=== PATIENT | male | born 1965 | race Hispanic/Latino ===

== ENCOUNTER 2021-06-30 21:32 | Emergency (ER) | payer OTHER ==
[2021-06-30] MEDS ORDERED: Acetaminophen 500 MG TAB ONE (22:08)
[2021-06-30] MEDS ORDERED: Cyclobenzaprine 10 MG TAB ONE (22:08)
[2021-06-30] MEDS ORDERED: Ketorolac Tromethamine 30 MG/ML VIAL ONE (23:57)
== END 2021-07-01 00:25 | disposition home or self-care (01) ==
LOC: ERS 21:32
DX: S39.012A Strain of muscle, fascia and tendon of lower back, initial encounter (principal); I10 Essential (primary) hypertension; E11.9 Type 2 diabetes mellitus without complications; E78.00 Pure hypercholesterolemia, unspecified; F17.210 Nicotine dependence, cigarettes, uncomplicated; V43.52XA Car driver injured in collision with other type car in traffic accident, initial encounter; W22.11XA Striking against or struck by driver side automobile airbag, initial encounter; Y92.410 Unspecified street and highway as the place of occurrence of the external cause; Z79.899 Other long term (current) drug therapy
CPT/HCPCS: 72170; 96372; J1885

== ENCOUNTER 2024-06-17 09:37 | Outpatient (CLI) | payer BC | END 2024-06-17 09:38 | disposition home or self-care (01) | LOC: MRI 09:37 | PROVIDERS: ATTEND Family Medicine | DX: M47.26 Other spondylosis with radiculopathy, lumbar region (principal); M51.16 Intervertebral disc disorders with radiculopathy, lumbar region; M47.815 Spondylosis without myelopathy or radiculopathy, thoracolumbar region; M51.379 Other intervertebral disc degeneration, lumbosacral region without mention of lumbar back pain or lower extremity pain; M47.817 Spondylosis without myelopathy or radiculopathy, lumbosacral region | CPT/HCPCS: 72148 ==